=== PATIENT | male | born 1960 | race Caucasian/White ===

== ENCOUNTER 2016-11-24 08:01 | Emergency (ER) | payer OTHER ==
[2016-11-24] MEDS ORDERED: ORPHENADRINE CITRATE 30 MG/ML VIAL IM ONE (08:16)
[2016-11-24] MEDS ORDERED: ORPHENADRINE CITRATE 30 MG/ML VIAL ONE (08:22)
--- NOTE | 2016-11-24 08:31 | ERNOTE ---
Head Injury HPI - Narrative Date of Service: 11/24/16 - General Injury to: head Time Seen by Provider: 11/24/16 08:08 Source: patient Exam Limitations: no limitations - Immun/Allergies/Home Medications Immunization: IMMUNIZATION HX Immunizations Up to Date Yes Allergies/Adverse Reactions: Allergies Allergy/AdvReac Type Severity Reaction Status Date / Time No Known Allergies Allergy Unverified 11/24/16 08:09 Home Medications: HOME MEDICATIONS Cyclobenzaprine HCl [Flexeril] 10 mg PO TID PRN #20 tab 11/24/16 [Last Taken Unknown] Lisinopril [Zestril] 20 mg PO DAILY 11/24/16 [Last Taken Unknown] - History of Present Illness Narrative: Patient presents to the ED for a fall. he was out on the dock putting his boat in and slipped on "slime". He fell backwards, hitting his head on the concrete. He does not think he was entirely knocked out but was dazed. pain in the back of his head and diffusely in the neck. No other injuries. No vision changes. no N/T/W. No thoracic or lumbar pain. No CP or SOB. no abdominal pain. Denies other pain or injuries. Occurred: just prior to arrival Severity: moderate Head Injury Location: occipital Method of Injury: Reports: fell Reason for Fall: Reports: slipped Loss of Consciousness: Reports: no loss of consciousness, dazed Associated Symptoms: Reports: denies symptoms. Denies: chest pain, seizure Review of Systems - Review of Systems Constitutional: Absent: fever EYE: Absent: vision changes Respiratory: Absent: shortness of breath Cardiology: Absent: chest pain Gastrointestinal/Abdominal: Absent: abdominal pain Genitourinary: Absent: dysuria - Patient's Past Medical History Patient History - Medical: No pertinent hx Patient History - Cardiac/Respiratory: Hypertension Patient History - Cancer: No Hx of Cancer Patient History - Other: None - Social History Living Situations: home Abuse History: No History of abuse Psych History: No pertinent hx Smoking Status: Current every day smoker Alcohol Use: none Drug Use: none - Immunizations Immunizations Up to Date: Yes Physical Exam - Physical Exam General Appearance: Present: alert, no apparent distress Head Exam: Present: other - small hematoma occiput. No laceration requiring repair. Absent: Davies's Sign Eye Exam: Normal inspection: bilateral, PERRL: bilateral, EOMI: bilateral Ears, Nose, Throat: Present: normal ENT inspection Neck: Present: normal inspection, other - diffuse paraspinal muscular tenderness cervial spine. no midline tenderess. No localizing point vertebral tenderness. Respiratory: Present: no respiratory distress, normal breath sounds, no accessory muscle use, lungs clear Cardiovascular/Chest: Present: regular rate, rhythm, normal peripheral pulses Gastrointestinal/Abdominal: Present: normal bowel sounds, nontender, nondistended, soft. Absent: tenderness Back Exam: Present: normal range of motion, no vertebral tenderness, other - prior surgery noted. 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 Absent: facial droop, motor weakness Skin Exam: Present: normal color, warm/dry ED Progress - Vital Signs Patient's Vital Signs:: I have reviewed the patient's vital signs. Vital Signs: Vital Signs 11/24/16 08:03 Temperature 36.0 C L Pulse Rate 80 Respiratory 12 Rate Blood Pressure 167/107 O2 Sat by Pulse 97 Oximetry - CT/Ultrasound CT/Ultrasound Narrative: I reviewed CT reports of the head and cervical spine. No acute process. - Progress/Reassessment Chief Complaint: Neck Pain/Injury Progress Note-Subjective: 11/24/16 09:25 Patient has no localizing midline tenderness. CT negative. Nothing to suggest ligamentous injury on exam, cleared after CT. Neg HCT and C-spine. He feels like jewels g[facility]. I discussed warning signs and reasons to return as well as the need for close f/u. Departure Clinical Impression: Fall, Head injury, Musculoskeletal pain - Departure Disposition: Home self-care Condition: Stable Instructions: Musculoskeletal Pain Additional Instructions: Rest. Follow-up with your doctor in 3 days for re-check. No driving with medications. Return for increased pain, numbness, tingling, weakness or if your condition worsens or changes in any way. Prescriptions: Cyclobenzaprine HCl [Flexeril] 10 mg PO TID PRN #20 tab PRN Reason: MUSCLE SPASMS
[2016-11-24 09:17] VITALS: BP 120/87
== END 2016-11-24 09:41 | disposition home or self-care (01) ==
LOC: ER 08:01 → EDBD 08:01 → ER 09:41
DX: S09.90XA Unspecified injury of head, initial encounter (principal); M79.1 Myalgia; F17.200 Nicotine dependence, unspecified, uncomplicated; I10 Essential (primary) hypertension; W01.198A Fall on same level from slipping, tripping and stumbling with subsequent striking against other object, initial encounter; Y93.89 Activity, other specified; Y92.62 Dock or shipyard as the place of occurrence of the external cause